=== PATIENT | male | born 1975 | race Caucasian/White ===

== ENCOUNTER 2024-04-16 21:08 | Emergency (ER) | payer BC, SELFPAY ==
[2024-04-16 21:13] VITALS: BMI 27.9
[2024-04-16 21:18] VITALS: BP 116/92
[2024-04-16 21:38] LABS: % Basophils 0.6 % (0-2); % Eosinophils 1.9 % (0-6); % Immature Granulocytes 0.4 % (0-0.5); % Lymphocytes 37.3 % (20.5-51.1); % Monocytes 9.8 % (1.7-9.3); Absolute Basophils 0.1 10^3/uL (0-0.2); Absolute Eosinophils 0.2 10^3/uL (0-0.7); Absolute Lymphocytes 3.2 10^3/uL (1.2-3.4); Absolute Monocytes 0.8 10^3/uL (0.1-0.6); Absolute Neutrophils 4.3 10^3/uL (1.4-6.5); Hematocrit 49.4 % (39.0-52.0); Hemoglobin 16.7 g/dL (13.0-18.0); Mean Corp Hgb Conc. 33.8 g/dL (33.0-37.0); Mean Corpuscular Hgb 31.6 pg (27.0-31.0); Mean Corpuscular Volume 93.6 fL (80.0-94.0); Nucleated Red Blood Cells % 0 % (-); Platelet Count 209 10^3/uL (130-400); Red Blood Cell Count 5.28 10^6/uL (4.70-6.10); Red Cell Dist. Width 12.6 % (11.5-14.5); White Blood Cell Count 8.6 10^3/uL (4.8-10.8)
[2024-04-16 21:41] VITALS: BP 151/84
[2024-04-16 21:53] LABS: ALT (SGPT) 39 U/L (0-50); AST (SGOT) 30 U/L (17-59); Albumin 4.8 g/dl (3.5-5.0); Alkaline Phosphatase 62 U/L (38-126); Blood Urea Nitrogen 21 mg/dl (9-20); Calcium 9.7 mg/dl (8.4-10.2); Carbon Dioxide 29 mmol/L (22-30); Chloride 100 mmol/L (98-107); Estimated Creatinine Clearance 98 ml/min; Glucose 98 mg/dl (70-99); Potassium 3.9 mmol/L (3.5-5.1); Sodium 137 mmol/L (135-145); Total Bilirubin 0.7 mg/dl (0.2-1.3); Total Protein 7.8 g/dl (6.3-8.2); eGFR > 60.00
[2024-04-16 22:00] VITALS: BP 118/100
[2024-04-16 22:04] LABS: Troponin I 0.014 ng/ml
--- NOTE | 2024-04-16 22:17 | ED.GENMED ---
History of Present Illness
General
Chief Complaint: Chest Problem
Source: patient
Time Seen by Provider: 04/16/24 21:57
History of Present Illness
History of Present Illness:
48-year-old male presents to the emergency room complaining of a fluttering in his heart. Patient noticed the symptoms at about 9 AM this morning. He woke up with a headache and feeling nauseous. When he vomited he felt his heart going to a rapid
rhythm that was irregular. Patient is similar occurrence in January. At that time he felt like his heart relatively quickly went back to normal rhythm and he was feeling well thereafter. Today potation's have continued. He denies any actual
chest tightness. He denies shortness of breath. His only prescription medication is sildenafil. He smokes cigars occasionally and drinks moderately.
Past History
Past History
ED Past Medical History: Other (epididymitis, previous eye surgery)
ED Past Surgical History: Urological
Social History
Tobacco: Non-smoker
Alcohol: Occasional
Drug: None
Employment: Employed
Phy Exam
Physical Exam
Physical Exam:
General: Awake, Alert, Oriented X3. No acute distress.
Vitals: unremarkable
Head: Atraumatic
Eyes: Pupils equal, EOMI
Throat: Airway intact, no exudates
Neck: Trachea midline
Lungs: Clear and equal b/l
Heart: Tachycardic, irregular rate, no murmurs
Abd: Soft, Nontender, No pulsatile mass
Neuro: Nonfocal
Skin: Warm, dry, no rash
Extremities: pulses equal b/l, no edema
Scores
[id number] Score for Afib Stroke Risk
Age in Years (65=0, 65-74=1, >/=75=2): <65
Sex (Female=+1): Male
Congestive Heart Failure History (Yes=+1): No
Hypertension History (Yes=+1): No
Stroke/TIA/Thromboembolism History (Yes=+2): No
Vascular Disease History (Yes=+1): No
Diabetes Mellitus (Yes=+1): No
Score: 0
Anticoagulation Recommendations: Anticoagulation not indicated (as validated in nonvalvular afib). Consider anticoagulation irrespective of score in patients with HCM
Course
Orders/Labs/Results
Orders:
Orders
04/16/24 21:11
EKG [Electrocardiogram (*1)] Urgent
Reason for Study: Chest Pain
EKG- Treatment ONCE
04/16/24 21:24
Pulse Ox/spot Check [RESP] Urgent
Quantity: 1
Special Instructions: ON ROOM AIR
04/16/24 21:31
Complete Blood Count/With Diff Urgent
Comprehensive Metabolic Panel Urgent
TSH Reflex To Free T4 Urgent
Comment: ADDON
Troponin I Urgent
04/16/24 22:16
Diltiazem HCl [Cardizem] 15 mg IV NOW STA
04/16/24 22:17
Add On- LAB Urgent
Tests Added?: tsh reflex t4
04/16/24 23:27
Diltiazem [Cardizem] 60 mg PO NOW STA
Abnormal Lab Results
04/16/24
21:31
MCH 31.6 H pg
(27.0-31.0)
Absolute Monos (auto) 0.8 H 10^3/uL
(0.1-0.6)
Monocytes % 9.8 H %
(1.7-9.3)
BUN 21 H mg/dl
(9-20)
04/16/24 21:31
04/16/24 21:31
Vital Signs
Initial and Last Documented VS:
Initial Vital Signs
Pulse Resp Pulse Ox
126 22 100
04/16/24 21:14 04/16/24 21:14 04/16/24 21:14
Last Documented Vital Signs
Temp Pulse Resp BP Pulse Ox
97.5 F 79 12 114/76 97
04/16/24 21:18 04/16/24 23:45 04/16/24 23:45 04/16/24 23:45 04/16/24 23:45
MDM/Problems Addressed
Differential Diagnosis Includes:
Atrial fibrillation, SVT, PACs, PVCs
MDM/Problems Addressed:
Patient found to be in A-fib. Rate controlled with Cardizem. I discussed cardioversion with the patient as it is quite clear that his symptoms began today. However when the patient was informed he would need to be on oral anticoagulation for at
least 2 weeks post cardioversion he was not interested. He would prefer a rate control strategy hoping he will spontaneously convert. Patient will follow-up with cardiology. He was given Dr. Hayden's number and I put him on the chest pain hotline
*Radiology
Radiology exam reviewed: radiology read reviewed
*Pulse Oximetry
Patient hypoxic: no
*EKG
Interpreted by ED Provider?: Yes
Heart Rate: 131
Rate: tachycardiac
Rhythm: a-fib
[place]: normal axis
Interval: normal interval
QRS Pattern: normal QRS
Ischemia: non-specific ST changes
*Customer Development Manager Interpretation
Interpretation: abnormal
Heart Rate: 131
Rhythm: a-fib
*Critical Care Note
Total Time (30-74mins, 75-104mins- exclusive of procedures): Not Applicable
Patient Management
Social determinants of health affecting care: Strong social support
ED Attending Note
-
Portions of this chart may have been created with voice recognition software.� Occasional wrong word or��sound alike� substitutions may have occurred due to the inherent limitations of voice recognition software.
Discharge Plan
Departure
Patient Disposition: Home (Routine Discharge)
Date of Disposition: 04/16/24
Time of Disposition: 23:28
Patient with high blood pressure during this ER visit?: No
Condition: Good
Discharge Problem:
Atrial fibrillation
Instructions: Atrial fibrillation, Chest Pain DCA Follow Up
Prescriptions:
New
diltiazem HCl [Cartia XT] 120 mg capsule,extended release 24hr
120 mg PO DAILY Qty: 30 0RF
No Action
omeprazole 20 MG capsule,delayed release(DR/EC)
20 mg PO DAILY PRN (Reason: reflux)
Referrals:
Marco Antonio Kraft DO [Active] -
Coy Hutchins MD [Family Provider] -
Activity Restrictions/Additional Instructions:
You should receive a call from the [facility] self service station attendant office tomorrow ([facility]) to make an appointment. Call the office if you do not hear from them by lunch time. I have sent a prescription for long acting Cardizem to control your
rate which you should take once a day.
Interventions
Interventions:
*Risk Screen - Suicide Last Done: 04/16/24 21:22
*General Assessment Last Done: 04/16/24 21:20
*Neglect/Abuse Screening Last Done: 04/16/24 21:21
ED- Fall Risk Assessment Last Done: 04/16/24 21:49
*ED COVID-19 Vaccine History Last Done: 04/16/24 21:20
*Nursing Disposition Last Done: 04/16/24 23:51
ED- Cardiac Assessment Last Done: 04/16/24 21:49
ED- Pulmonary Assessment Last Done: 04/16/24 21:49
Discharge Date and Time
Discharge Date/Time: 04/16/24 23:51
Print Language: [id number]
[2024-04-16] MEDS: CARDIZEM 15 MG IV (22:24)
[2024-04-16 22:25] VITALS: BP 139/97
[2024-04-16 23:00] VITALS: BP 114/76
[2024-04-16 23:08] LABS: TSH Reflex To Free T4 2.04 uIU/ml (0.47-4.68)
[2024-04-16] MEDS: CARDIZEM 60 MG PO (23:45)
== END 2024-04-16 23:51 | disposition home or self-care (01) ==
LOC: EMR 21:08
PROVIDERS: Student in an Organized Health Care Education/Training Program; EMERGENCY PHYSICIAN Emergency Medicine; FAMILY PHYSICIAN Family Medicine
DX: I48.91 Unspecified atrial fibrillation (principal); Z72.0 Tobacco use
CPT/HCPCS: 96374; 99284; 80053; 84443; 84484; 85025; 93005

== ENCOUNTER → 2024-05-13 10:18 | Outpatient (REF) | payer BC, SELFPAY | LOC: DHSLP 10:18 | PROVIDERS: ATTENDING PHYSICIAN Internal Medicine Cardiovascular Disease; FAMILY PHYSICIAN Family Medicine | DX: G47.33 Obstructive sleep apnea (adult) (pediatric) (principal) | CPT/HCPCS: 95800 ==

== ENCOUNTER → 2024-05-14 15:40 | Outpatient (REF) | payer BC, SELFPAY | LOC: HWRCS 15:40 | PROVIDERS: ATTENDING PHYSICIAN Internal Medicine Cardiovascular Disease; FAMILY PHYSICIAN Family Medicine | DX: I48.91 Unspecified atrial fibrillation (principal) | CPT/HCPCS: 93306 ==

== ENCOUNTER → 2024-10-10 13:29 | Outpatient (REF) | payer SELFPAY | LOC: RAD 13:29 | PROVIDERS: ATTENDING PHYSICIAN Internal Medicine Cardiovascular Disease; FAMILY PHYSICIAN Family Medicine | DX: E78.2 Mixed hyperlipidemia (principal) | CPT/HCPCS: 75571 ==